=== PATIENT | female | born 1980 | race Caucasian/White ===

== ENCOUNTER 2023-03-09 13:07 | Outpatient (REF) | payer BC, SELFPAY ==
--- NOTE | 2023-03-09 13:11 | EEG_ITS ---
PROCEDURE: 24-hour ambulatory EEG. FINDINGS: Waking background activity consists of a well-defined moderate voltage posterior 11 hertz alpha frequency that attenuates well with eye opening, while low-voltage fast frequencies predominate anteriorly. A few instances of sharp theta activity was seen in the left temporal region with phase reversal at T3. The patient remains asymptomatic. During sleep, symmetrical frontal central sleep spindles and vertex sharp transients develop over both hemispheres. Arousals are unremarkable. IMPRESSION: This 24-hour ambulatory EEG is considered minimally abnormal due to a few instances of sharp theta activity seen from the left temporal region that is suggestive of an underlying focus of cerebral irritability. Clinical correlation is suggested. MD AMELIA Suarez/YOVANA / [id number]
== END 2023-03-09 13:08 | disposition home or self-care (01) ==
LOC: HO.NEURO 13:07
PROVIDERS: PCP Internal Medicine; Visit Provider Psychiatry & Neurology Neurology
DX: R55 Syncope and collapse (principal)
CPT/HCPCS: 95708